=== PATIENT | female | born 1945 | race Caucasian/White ===

== ENCOUNTER 2022-06-23 12:20 | Outpatient (CLI) | payer MEDICARE, MEDICAID, SELFPAY ==
--- NOTE | 2022-06-23 12:15 | USCV_ITS ---
Yasmani Encinas Age: 76 Gender: F : 1945 Exam Date: 06/23/2022 12:59 Ordering Phys: Loretta Gil MD Technologist: Shaila Christopher Exam Location: [facility] [place] Indication: heart failure BP: 140 / 89 HR: 66 Rhythm: Sinus Technical Quality: Good MEASUREMENTS (Male / Female) Normal Values 2D ECHO LV Diastolic Diameter PLAX 5.2 cm 4.2 - 5.9 / 3.9 - 5.3 cm LV Systolic Diameter PLAX 4.4 cm IVS Diastolic Thickness 1.1 cm 0.6 - 1.0 / 0.6 - 0.9 cm IVS Systolic Thickness 1.0 cm LVPW Diastolic Thickness 1.0 cm 0.6 - 1.0 / 0.6 - 0.9 cm LVPW Systolic Thickness 1.5 cm LVOT Diameter 2.0 cm LV Ejection Fraction 2D Teich 33.0 % LV Ejection Fraction MOD 2C 70.1 % LV Ejection Fraction 2C AL 70.8 % LA Diameter 4.3 cm LA Width 3.7 cm LA Height 6.5 cm RA Width 4.2 cm RA Height 5.1 cm Aorta at Sinotubular Diameter 2.8 cm IVC Diameter 1.7 cm M-MODE MV E Point Septal Separation 0.6 cm DOPPLER AV Peak Velocity 143.0 cm/s LVOT Peak Velocity 114.0 cm/s AV Area Cont Eq vti 2.8 cm squared AV Area Cont Eq pk 2.6 cm squared MV Area PHT 2.8 cm squared Mitral E to A Ratio 1.3 MV E' Velocity 61.5 cm/s Mitral E to MV E' Ratio 18.2 Mitral E to LV E' Lateral Ratio 16.9 Mitral E to LV E' Septal Ratio 20.1 TR Peak Velocity 269.4 cm/s TR Peak Gradient 29.0 mmHg Right Atrial Pressure 3.0 mmHg Pulmonary Artery Systolic Pressu 32.0 mmHg PV Peak Velocity 115.0 cm/s RV Acceleration Time 0.1 s RV Ejection Time 0.4 s RV AcT/ET 0.4 FINDINGS Left Ventricle Left ventricle is normal in size. LV systolic function is mildly reduced with EF of 40-45%. Mild global hypokinesis is seen. Grade II dilastolic dysfunction Right Ventricle Normal in size and function. Right Atrium Dilated Left Atrium Dilated Mitral Valve Structurally normal mitral valve. Moderate mitral regurgitation. Aortic Valve Structurally normal aortic valve. No significant stenosis . Trace aortic regurgitation seen Tricuspid Valve Mild tricuspid regurgitation. RVSP is 35-40mmHg. This is consistent with mild pulmonary hypertension. Pulmonic Valve Not well visualized. Pericardium Pleural effusion is noted. Trivial pericardial effusion. Aorta Aortic root and ascending aorta is mildly dilated. IVC Appears to be normal CONCLUSIONS LV systolic function is mildly reduced with EF of 40 to 45%. Mild global hypokinesis is seen. Grade II dilastolic dysfunction Biatrial enlargement is seen. Moderate mitral regurgitation Trace aortic regurgitation Mild tricuspid regurgitation. Mild pulmonary hypertension Trivial pericardial effusion. Pleural effusion is noted Ascending aorta is mildly dilated No comparison studies are available Pedrito Walker MD (Electronically Signed) Final Date: 23 June 2022 16:54 S
== END 2022-06-23 12:21 | disposition home or self-care (01) ==
LOC: RAD 12:22
PROVIDERS: Visit Provider Family Medicine
DX: I08.3 Combined rheumatic disorders of mitral, aortic and tricuspid valves (principal); I27.20 Pulmonary hypertension, unspecified; J90 Pleural effusion, not elsewhere classified
CPT/HCPCS: 93306

== ENCOUNTER 2022-07-18 10:24 | Outpatient (CLI) | payer MEDICARE, MEDICAID, SELFPAY ==
[2022-07-18 11:09] LABS: Anion Gap 11.7 (5-19); Blood Urea Nitrogen 46 mg/dL (8-23); Calcium 9.2 mg/dL (8.5-10.5); Carbon Dioxide 29 mmol/L (22-29); Chloride 105 mmol/L (98-107); Glucose 102 mg/dL (65-115); Osmolality Calculated 300 mOsm/kg (285-295); Sodium 139 mmol/L (136-145)
[2022-07-18 11:44] LABS: Potassium 6.7 mmol/L (3.5-5.1)
== END 2022-07-18 10:25 | disposition home or self-care (01) ==
PROVIDERS: Visit Provider Internal Medicine
DX: I50.9 Heart failure, unspecified (principal)
CPT/HCPCS: 80048

== ENCOUNTER 2022-08-30 23:40 | Inpatient (IN) | payer MEDICARE, MEDICAID, SELFPAY ==
--- NOTE | 2022-08-30 23:52 | XRR_ITS ---
PROCEDURE INFORMATION: Exam: XR Chest Exam date and time: 08/31/2022 1:18 AM Age: 76 years old Clinical indication: Shortness of breath; Additional info: SOB AMS TECHNIQUE: Imaging protocol: Radiologic exam of the chest. Views: 1 view. COMPARISON: No relevant prior studies available. FINDINGS: Lungs: No definite CHF/pulmonary edema. Mild bilateral lower lung opacities could represent atelectasis and/or pneumonia. Please correlate clinically. Pleural spaces: There appears to be a moderate to large right pleural effusion. No visible pneumothorax. Heart/Mediastinum: Suspect mild to moderate cardiomegaly. Bones/joints: Several old rib fractures noted. XR/XR chest 1V portable [id number] IMPRESSION: 1. Moderate to large right pleural effusion. 2. Bilateral lower lung opacities, see above discussion. 3. Other findings discussed above.
--- NOTE | 2022-08-30 23:52 | CTR_ITS ---
PROCEDURE INFORMATION: Exam: CT Head Without Contrast Exam date and time: 08/31/2022 1:27 AM Age: 76 years old Clinical indication: Altered mental status/memory loss; Additional info: AMS TECHNIQUE: Imaging protocol: Computed tomography of the head without contrast. Radiation optimization: All CT scans at this facility use at least one of these dose optimization techniques: automated exposure control; mA and/or kV adjustment per patient size (includes targeted exams where dose is matched to clinical indication); or iterative reconstruction. REPORTING DATA: Count of CT and Cardiac NM exams in prior 12 months: This patient has received 0 known CTs and 0 known cardiac nuclear medicine studies in the 12 months prior to the current study. COMPARISON: No relevant prior studies available. RADIATION DOSE METRICS: Total DLP (mGy-cm): 1036.89 FINDINGS: Brain: No acute intracranial hemorrhage or midline shift. There is mild decreased attenuation in the periventricular white matter, likely from microvascular disease. There is a 40 x 25 x 30 mm area of relative low attenuation involving the medial right occipital lobe. This could represent an old infarct, although I suspect this may represent an area of subacute infarct. Acute infarct,(<24 hrs old), is felt less likely given the degree of low-attenuation, but is not excluded. Please correlate clinically. MRI could be more sensitive/specific for acute infarct detection, and also for distinguishing between old and subacute infarcts, as clinically directed. Eventual comparison with any available prior exams may also be helpful. Cerebral ventricles: Ventricle size is normal for age. Paranasal sinuses: Included paranasal sinuses are essentially clear. Mastoid air cells: No significant acute finding. Bones/joints: No definite acute skull fracture. Soft tissues: No significant acute finding. Vasculature: Vascular calcifications in the internal carotid arteries. CT/CT head wo con* [id number] IMPRESSION: 1. Suspicion for a subacute infarct involving the medial right occipital lobe, please see above discussion. 2. No acute intracranial hemorrhage or midline shift. 3. No definite acute infarct by CT, see above. 4. Other findings discussed above.
[2022-08-31] VITALS (95 sets, daily range): BP systolic 72–109; BP diastolic 36–75; PULSE 65–118; RESP 12–33; TEMP 34.7–36.4; O2SAT 67–100
--- NOTE | 2022-08-31 | USR_ITS ---
PROCEDURE INFORMATION: Exam: US Duplex Lower Extremity Veins, Bilateral Exam date and time: 08/31/2022 9:09 AM Age: 76 years old Clinical indication: Condition or disease; Other: Bilat lower extremity edema; Additional info: R/O dvt TECHNIQUE: Imaging protocol: Real-time duplex ultrasound of the bilateral extremities with 2-D amos scale, color Doppler flow and spectral waveform analysis including responses to compression and other maneuvers (when performed) with image documentation. Complete exam focused on the lower extremity veins. COMPARISON: No relevant prior studies available. FINDINGS: Right deep veins: Unremarkable. The common femoral, femoral, proximal profunda femoral and popliteal veins are patent without thrombus. Normal Doppler waveforms. Normal compressibility and/or augmentation response. Right superficial veins: Saphenofemoral junction is patent without thrombus. Left deep veins: Unremarkable. The common femoral, femoral, proximal profunda femoral and popliteal veins are patent without thrombus. Normal Doppler waveforms. Normal compressibility and/or augmentation response. Left superficial veins: Saphenofemoral junction is patent without thrombus. Soft tissues: There is increased reticulation of the subcutaneous tissues in the lower legs, consistent with edema. US/[place] [id number] IMPRESSION: No evidence of deep vein thrombosis.
--- NOTE | 2022-08-31 00:04 | ECG_ITS ---
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 Measurements Intervals [place] Rate: 78 P: 74 [place]: 150 QRS: 81 QRSD: 137 T: -17 QT: 443 QTc: 507 Interpretive Statements SINUS RHYTHM INTRAVENTRICULAR CONDUCTION DELAY [130+ ms QRS DURATION] POSSIBLE ANTERIOR MYOCARDIAL INFARCTION , OF INDETERMINATE AGE [30 ms Q WAVE IN V3/V4, OR R < 0.2 mV IN V4] No previous ECG available for comparison Electronically Signed On 08-31-2022 11:39:56 IGNITION SPECIALIST by Pedrito Walker M.D. [id number]
[2022-08-31 00:19] LABS: ABG PCO2 47.3 mmHg (35-45); ABG PH Result 7.31 (7.35-7.45); Arterial Blood Gas Hematocrit 24.6 % (37-47); Base Excess ABG -2.3 mmol/L (-2.0-2.0); Blood Gas Sample Site Brachial, left; Blood Gas Sample Type Arterial; Carboxyhemoglobin 1.6 %THgb (0.4-20.1); HCO3 ABG 23.9 mmol/L (22-26); HGB O2 Sat 94.2 % (95-100); Methemoglobin 0.6 % (0.4-1.5); Oxygen Device NC; PO2 ABG 85.2 mmHg (80.0-100.0)
[2022-08-31 01:10] LABS: Lactic Sepsis W/Reflex 2.9 mmol/L (0.5-2.2)
[2022-08-31 01:17] LABS: Basophils % 0.1 %; Hematocrit 28.5 % (37.0-47.0); Hemoglobin 8.3 g/dL (11.5-15.3); Lymphocytes # 0.7 10^3/uL (0.8-4.8); Lymphocytes % 2.9 %; Mean Corpuscular HGB Conc 29.1 g/dL (30.0-36.0); Mean Corpuscular Hemoglobin 21.4 pg (28.0-34.0); Mean Corpuscular Volume 73.6 fl (81-99); Mean Platelet Volume 11.2 fL (7.4-10.4); Monocytes # 1.2 10^3/uL (0.2-0.9); Monocytes % 4.8 %; Neutrophils # 22.11 10^3/uL (1.8-7.7); Neutrophils % 91.5 %; Nucleated Red Blood Cells # 0.2 /100WBC; Platelet Count 283 10^3/cmm (130-400); Red Blood Count 3.87 10^6/uL (4.1-5.3); White Blood Count 24.2 10^3/uL (4.0-10.0)
[2022-08-31 01:18] LABS: Alanine Aminotransferase 419 U/L (0-33); Albumin Level 2.7 g/dL (3.5-5.2); Alkaline Phosphatase 132 U/L (35-105); Anion Gap 25.7 (5-19); Calcium 7.3 mg/dL (8.5-10.5); Carbon Dioxide 21 mmol/L (22-29); Chloride 95 mmol/L (98-107); Globulin 2.4 g/dL (1.3-4.6); Glucose 83 mg/dL (65-115); Osmolality Calculated 312 mOsm/kg (285-295); Sodium 135 mmol/L (136-145); Total Bilirubin 1.6 mg/dL (0.15-1.2); Total Protein 5.1 g/dL (6.6-8.7)
[2022-08-31 01:36] LABS: Troponin(5th) Baseline 136 ng/L (0-10)
[2022-08-31 01:37] LABS: Blood Urea Nitrogen 104 mg/dL (8-23); Potassium 6.7 mmol/L (3.5-5.1)
[2022-08-31 01:44] LABS: Aspartate Amino Transferase 1165 U/L (0-32)
[2022-08-31 01:45] LABS: NT Pro B Type Natriuretic Pept > 70000 pg/mL (0-450)
--- NOTE | 2022-08-31 01:50 | ED_ITS ---
HPI - Altered Mental Status General: Chief Complaint: Altered Mental Status Stated Complaint: AMS Time Seen by Provider: 08/30/22 23:44 Source: patient History of Present Illness: 76-year-old female with a history of dementia. She resides in a half-way. She was sent by the nursing staff for decreased responsiveness, and hypoxia. Their story was that she had an episode of syncope earlier in the day followed by increasing lethargy. Saturations were evidently in the 70s and 80s on EMS arrival on 3 L of oxygen. She was placed on 5 L by EMS, given a breathing treatment, and oxygen status as well as her mental state have improved to some degree. She is able to tell us that it is August, and that Thom is president. She has a history of a wet cough. MD complaint: altered mental status and decreased responsiveness Onset (ago): hour(s) Timing confirmed by: caregiver Severity: moderate Consistency of symptoms: Waxing and Waning Associated symptoms: Reports other Review of Systems General: Reports: ROS unobtainable due to mental status Const: Denies: fever(s) Card: Denies: chest pain Resp: Reports: dyspnea and non-productive cough GI: Denies: abdominal pain or vomiting Physical Exam Const: GENERAL APPEARANCE: cooperative, lethargic, ill appearing and frail appearing ORIENTATION/CONSCIOUSNESS: Yes awake and Yes lethargic HENMT: COMMON NORMALS: normocephalic, atraumatic and Normal external nose present HEAD & SCALP: normocephalic and atraumatic FACE & SINUS: normal facial exam NOSE: Normal external nose present Eye: COMMON NORMALS: Equal, round and reactive pupils present and EOMs intact bilaterally PUPIL: Yes Equal, round and reactive pupils present Chest: CHEST: Yes Symmetrical chest wall rise Resp: EFFORT & INSPECTION: Yes tachypneic AUSCULTATION: diminished lung sounds Cardio: COMMON NORMALS: regular rate and regular rhythm RATE: regular rate RHYTHM: regular rhythm GI: COMMON NORMALS: Normal to inspection, nondistended, normoactive bowel sounds present, Soft to palpation and non-tender PALPATION: Yes Soft to palpation Extremity: NARRATIVE EXTREMITY EXAM: Chronic stasis dermatitis with edema bilaterally Neuro: YOSSI COMA SCALE: document GCS findings Yossi coma scale eye opening: Spontaneous [place] coma scale verbal response: Confused [place] coma scale motor response: Obey commands Yossi coma scale total score: 14 SENSORIUM/ORIENTATION: Yes lethargic Psych: COMMON NORMALS: cooperative Course Consultations: Consultation #1: Shania Time: 02:42 Vital Signs: Vital signs: Vital Signs Pulse Rate 73 08/31/22 02:00 Respiratory Rate 12 08/31/22 02:00 Blood Pressure 108/48 08/31/22 02:30 Pulse Oximetry 94 08/31/22 02:00 Oxygen Delivery Me thod 08/31/22 02:00 Oxygen Flow Rate 4 08/31/22 02:00 MDM - Altered Mental Status Medical Decision Making Patient is nontachycardic, she is not hypoxic. Blood pressure is 100/50. WBC 24, 92% neutrophyls. lactate is 2.9. X ray shows large R pleural effusion and cardiomegaly. Cr is 3.5. baseline appears to be 1.5. BUN elevated. BNP is elevated. Still with likely pneumonia and sepsis, bolus at 30mL/Kg ordered. Saturations are 100% on %L currently. Zosyn and Vanc are ordered/given. She'll need ICU admission. EKG shows IV conduction delay. Not known whether this is new or old, but given K of 6.7 will have to treat hyperkalemia. Insulin/glucose, calcium and sodium bicarb are ordered/given. She is critical and will go to ICU. She is a DNR by PA order. Lab Data 08/31/22 00:28 08/31/22 00:28 Radiology Impressions Chest X-Ray 08/30/22 23:52 IMPRESSION: 1. Moderate to large right pleural effusion. 2. Bilateral lower lung opacities, see above discussion. 3. Other findings discussed above. Head CT 08/30/22 23:52 IMPRESSION: 1. Suspicion for a subacute infarct involving the medial right occipital lobe, please see above discussion. 2. No acute intracranial hemorrhage or midline shift. 3. No definite acute infarct by CT, see above. 4. Other findings discussed above. ADDENDUM: 08/31/22 0217 This report contains findings that may be critical to patient care. I discussed the critical exam findings by phone with JESSICA Davila at 2:14 AM HONING JOB SETTER, 08/31/2022. The findings were acknowledged and understood. Laboratory Results WBC 24.2 10^3/uL (4.0-10.0) H 08/31/22 00:28 RBC 3.87 10^6/uL (4.1-5.3) L 08/31/22 00:28 Hgb 8.3 g/dL (11.5-15.3) L 08/31/22 00: Hct 28.5 % (37.0-47.0) L 08/31/22 00: MCV 73.6 fl (81-99) L 08/31/22 00: MCH 21.4 pg (28.0-34.0) L 08/31/22 00: MCHC 29.1 g/dL (30.0-36.0) L 08/31/22 00: RDW 18.0 % (12.1-15.1) H 08/31/22 00: Plt Count 283 10^3/cmm (130-400) 08/31/22 00: MPV 11.2 fL (7.4-10.4) H 08/31/22 00:28 Neut % (Auto) 91.5 % 08/31/22 00: Lymph % (Auto) 2.9 % 08/31/22 00: Marshall % (Auto) 4.8 % 08/31/22 00:28 Eos % (Auto) 0.0 % 08/31/22 00:28 Baso % (Auto) 0.1 % 08/31/22 00: Neut # (Auto) 22.11 10^3/uL (1.8-7.7) H 08/31/22 00:28 Lymph # (Auto) 0.7 10^3/uL (0.8-4.8) L 08/31/22 00:28 Marshall # (Auto) 1.2 10^3/uL (0.2-0.9) H 08/31/22 00:28 Eos # (Auto) 0.0 10^3/uL (0.0-0.8) 08/31/22 00:28 Baso # (Auto) 0.0 10^3/uL (0.0-0.1) 08/31/22 00:28 Nucleated RBC % (auto) 1.0 % 08/31/22 00: Nucleated RBCs # 0.2 /100WBC 08/31/22 00:28 Specimen Type Arterial 08/31/22 00:06 Sample Site Brachial, left 03/05/23 00:06 ABG pH 7.31 (7.35-7.45) L 08/31/22 00:06 ABG pCO2 47.3 mmHg (35-45) H 08/31/22 00:06 ABG pO2 85.2 mmHg (80.0-100.0) 08/31/22 00:06 ABG HCO3 23.9 mmol/L (22-26) 08/31/22 00:06 ABG Base Excess -2.3 mmol/L (-2.0-2.0) L 08/31/22 00:06 Neo Test N/a 08/31/22 00:06 Hematocrit 24.6 % (37-47) L 08/31/22 00:06 Hgb O2 Saturation 94.2 % (95-100) L 08/31/22 00:06 Carboxyhemoglobin 1.6 %THgb (0.4-20.1) 08/31/22 00:06 Methemoglobin 0.6 % (0.4-1.5) 08/31/22 00:06 Total Hemoglobin 8.0 g/dL (12-16) L 08/31/22 00:06 O2 Delivery Device Nc 08/31/22 00:06 O2 Liters/Min 4.0 % 08/31/22 00:06 FiO2 36.0 % 08/31/22 00:06 Irrigationist Designer ID Navarro 08/31/22 00:06 Sodium 135 mmol/L (136-145) L 08/31/22 00:28 Potassium 6.7 mmol/L (3.5-5.1) H* 08/31/22 00:28 Chloride 95 mmol/L (98-107) L 08/31/22 00:28 Carbon Dioxide 21 mmol/L (22-29) L 08/31/22 00:28 Anion Gap 25.7 (5-19) H 08/31/22 00:28 BUN 104 mg/dL (8-23) H* D 08/31/22 00:28 Creatinine 3.5 mg/dL (0.5-0.9) H 08/31/22 00:28 GFR Calculation Not Reportable 08/31/22 00:28 Glucose 83 mg/dL (65-115) 08/31/22 00:28 POC Glucose 181 mg/dL (70-110) H 08/31/22 02:22 Calculated Osmolality 312 mOsm/kg (285-295) H 08/31/22 00:28 Lactic Acid 2.9 mmol/L (0.5-2.2) H 08/31/22 00:28 Calcium 7.3 mg/dL (8.5-10.5) L 08/31/22 00:28 Total Bilirubin 1.6 mg/dL (0.15-1.2) H 08/31/22 00:28 AST 1165 U/L (0-32) H 08/31/22 00:28 ALT 419 U/L (0-33) H 08/31/22 00:28 Alkaline Phosphatase 132 U/L (35-105) H 08/31/22 00:28 Troponin T Baseline 136 ng/L (0-10) H* 08/31/22 00:28 NT-Pro-B Natriuret Pep > 26870 pg/mL (0-450) H 08/31/22 00:28 Total Protein 5.1 g/dL (6.6-8.7) L 08/31/22 00:28 Albumin 2.7 g/dL (3.5-5.2) L 08/31/22 00:28 Globulin 2.4 g/dL (1.3-4.6) 08/31/22 00:28 Critical Care Time Critical Care Time: Critical Care Time: Yes Total Critical Care Time: 45 Attestation: This case had a high probability of a clinically significant, sudden, or life threatening deterioration of this patient's condition which required my full and direct attention, intervention and personal management. Time is independent of any procedures performed Discharge Plan Discharge Patient Disposition: Admitted As Inpatient Clinical Impression: Sepsis, Stroke, Pneumonia, Pleural effusion, Acute hyperkalemia, DEEPALI (acute kidney injury) Condition: Critical Coding Level of Care Code ED Case Picker for Hillary Green
[2022-08-31] MEDS: piperacillin-tazobactam 4.5 GM in sodium chloride 0.9% (plus) 50 ML IV (01:51)
--- NOTE | 2022-08-31 01:53 | ECG_ITS ---
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 Measurements Intervals [place] Rate: 69 P: 60 [place]: 141 QRS: -39 QRSD: 141 T: 139 QT: 466 QTc: 502 Interpretive Statements SINUS RHYTHM LEFT AXIS DEVIATION [QRS AXIS < -30] LEFT BUNDLE BRANCH BLOCK [120+ ms QRS DURATION, 80+ ms Q/S IN V1/V2, 85+ ms R IN I/aVL/V5/V6] Compared to ECG 08/31/2022 00:04:40 Left-axis deviation now present Left bundle-branch block now present Intraventricular conduction delay no longer present Myocardial infarct finding no longer present Electronically Signed On 08-31-2022 11:39:29 SHANK MAKER by Pedrito Walker M.D. [id number]
[2022-08-31] MEDS: sodium chloride 0.9% 1,000 ML 999 ML IV ×2 (02:08→03:07)
[2022-08-31] MEDS: sodium bicarbonate 8.4% 1 mEq/mL 50mL Syr 50 MEQ IVP (02:11)
[2022-08-31] MEDS: calcium gluconate 0.9% NaCL 1 GM/50 ML PREMIX IV ×2 (02:14→18:15)
[2022-08-31] MEDS: insulin regular-human 100 units/1 mL 10 UNIT IVP (02:22)
[2022-08-31] MEDS: vancomycin 1,000 MG in sodium chloride 0.9% 250 ML 250 MG IV (02:25)
[2022-08-31 02:33] LABS: Reflex Lactate Order REFLEX LACTIC ORDERD
[2022-08-31 02:37] LABS: Glucose Point of Care 181 mg/dL (70-110)
[2022-08-31 03:03] LABS: Glucose Point of Care 77 mg/dL (70-110)
[2022-08-31 03:24] LABS: Troponin 5 2HR Delta 4.6 ABS# (0-10)
[2022-08-31 03:25] LABS: Troponin 5 2HR 140.6 ng/L (0-10)
--- NOTE | 2022-08-31 04:03 | PC.NURSE ---
Addendum entered by Lora Phillips RN 08/31/22 04:08: Axillary temp 94.4, Shilpa Huggfroilan warming blanket applied. Original Note: Pt arrive to ICU 7 from ER via stretcher on continuos monitoring @0340. Continuos monitoring continued. Pt is A&Ox2. NC 3.5L. Skin issues noted, see wound assessment.
--- NOTE | 2022-08-31 05:19 | USR_ITS ---
PROCEDURE INFORMATION: Exam: US Duplex Bilateral Extracranial Arteries, Carotid Arteries Exam date and time: 08/31/2022 9:35 AM Age: 76 years old Clinical indication: Malaise or fatigue; Additional info: Stroke TECHNIQUE: Imaging protocol: Real-time Duplex ultrasound scan of the bilateral carotid and vertebral arteries combining amos scale, color Doppler and spectral waveform analysis. Bilateral exam. Exam focused on the carotid arteries. COMPARISON: CT head wo con* [id number] 08/31/2022 1:27 AM FINDINGS: Scattered areas of atherosclerotic plaque seen bilaterally. Right common carotid artery: Unremarkable. No occlusion or stenosis. Waveforms are normal. Right internal carotid artery: Unremarkable. No occlusion or stenosis. Waveforms are normal. Right ICA/CCA ratio: Within normal limits. Right external carotid artery: No stenosis in the origin. Right vertebral artery: Unremarkable. Antegrade flow. Left common carotid artery: Unremarkable. No occlusion or stenosis. Waveforms are normal. Left internal carotid artery: Unremarkable. No occlusion or stenosis. Waveforms are normal. Left ICA/CCA ratio: Within normal limits. Left external carotid artery: No stenosis in the origin. Left vertebral artery: Unremarkable. Antegrade flow. US/CV carotid duplex BI* [id number] IMPRESSION: No carotid arterial stenosis. REFERENCES: SRU CRITERIA. The degree of internal carotid artery stenosis is based on criteria defined by the Society of Radiologists in Ultrasound (SRU). Normal is no stenosis. Mild is less than 50% stenosis. Moderate is 50-69% stenosis. Severe is greater than 69% stenosis to near occlusion. Near occlusion is a markedly narrowed lumen. Total occlusion is no detectable patent lumen.
[2022-08-31] MEDS: albumin 25 G/100 ML BAG 60 G IV ×3 (05:27→20:47)
[2022-08-31] MEDS: sodium chloride 0.9% 1,000 ML 50 ML IV (05:27)
[2022-08-31] MEDS: enoxaparin 100 mg/mL Syringe 60 MG SUBCUT (05:36)
[2022-08-31] MEDS: insulin regular-human 10 UNIT in SYRINGE 1 EACH IVP ×2 (05:39→18:04)
[2022-08-31 05:44] LABS: Potassium, Radom Urine 55 mmol/L; Urine Random Chloride 41 mmol/L; Urine Random Sodium 52 mmol/L
[2022-08-31] MEDS: hydrocortisone 100 mg/2 mL SDV IVP (05:54)
[2022-08-31 05:59] LABS: Glucose Urine UA 1+ (Normal); Protein Urine 3+ (Negative); Specific Gravity, Urine 1.025 (1.005-1.030); Urine Appearance Hazy (CLEAR); Urine Color Dark Yellow (Yellow); pH Urine 5 (5-7)
[2022-08-31 06:00] LABS: Add Urine Microscopic? YES; Bilirubin Urine 1+ (Negative); Blood Urine 3+ (Negative); Ketones Urine 1+ (Negative); Leukocyte Esterase Urine Trace (Negative); Nitrate Urine Positive (Negative); Urobilinogen Urine 1 mg/dL (Negative)
--- NOTE | 2022-08-31 06:00 | PC.NURSE ---
Bedside [place] w/ bolus showed 12.4% (fluid responsive), Dr. Spicer aware.
[2022-08-31 06:01] LABS: RBC Urine 25-40 /hpf (0-2)
[2022-08-31 06:02] LABS: Add Urine Culture? Yes; Amorphous Sediment Urine 2+ /hpf; Bacteria Urine 3+ /hpf; Hyaline Casts Urine 0-4 /lpf; Mucus Urine 2+ /hpf; WBC Urine 15-25 /hpf (0-5)
--- NOTE | 2022-08-31 06:07 | PM.HP ---
Providers/Chief Complaint Admitting Physician: Home Spicer MD Primary Care Provider: Loretta Gil MD Chief Complaint: AMS History of Present Illness History taken through chart review and conversation with shelter. Yasmani Encinas is a 76 year old female with past medical history of congestive heart failure with known EF of 45%, global LV hypokinesia, shelter resident on oral Lasix and spironolactone was brought into the ER overnight because of episode of syncope at around 11 AM followed by resolution of symptoms in 15 minutes. As per the shelter patient has been having episodes of confusion and difficulty in breathing during the day requiring oxygen hence was sent to the hospital. Blood work in the ER showed a white count 24.2, hemoglobin of 8.3, ABG showing a pH of 7.3, PCO2 47, PO2 of 85, sodium 135, potassium of 6.7, bicarb of 21 with anion gap of 26, BUN of 104, creatinine of 3.5, lactate of 2.9, bilirubin of 1.6, AST/ALT of 1165/419, baseline troponin of 136 with delta of 4 in [address] head concerning for acute to subacute stroke in detail as below. In ER patient was given 1 L of fluid bolus, 2 doses of D50 and 10 units of insulin along with 50 mg of sodium bicarb. On examination in ICU, patient appears chronically sick, sleeping but easy to arouse, weak, alert and oriented to self with blood pressure of 98/60 with a MAP of 68, heart rate 74 with hypothermia and body temperature of 94 Fahrenheit under Shilpa hugger. Patient also found to have chronic decubitus ulcer. Review of Systems General: Reports: ROS unobtainable due to mental status Medications/Allergies Home Medications Medication Instructions Recorded Confirmed Last Taken Type albuterol sulfate 2.5 mg/3 mL 2.5 mg inhalation Q6H PRN Wheezing 08/31/22 08/31/22 Unknown History (0.083 %) solution for nebulization aspirin 81 mg tablet,delayed 81 mg PO DAILY 08/31/22 08/31/22 Unknown History release atorvastatin 20 mg tablet 20 mg PO DAILY 08/31/22 08/31/22 Unknown History donepezil 10 mg tablet 10 mg PO DAILY 08/31/22 08/31/22 Unknown History furosemide 40 mg tablet 40 mg PO BID 08/31/22 08/31/22 Unknown History spironolactone 25 mg tablet 25 mg PO DAILY 08/31/22 08/31/22 Unknown History triamcinolone acetonide 0.1 % 1 applic topical BID 08/31/22 08/31/22 Unknown History topical cream Allergies Allergy/AdvReac Type Severity Reaction Status Date / Time No Known Allergies Allergy Verified 08/31/22 01:13 PFSH Acute PFSH: Medical History (Updated 08/31/22 @ 06:15 by Home Spicer MD) Acute hyperkalemia Congestive heart failure Echocardiogram from May 2022: EF 40 to 45%, global LV hypokinesia, grade 2 diastolic dysfunction, RVSP 35 to 40 mmHg, moderate MR COVID-19 Surgical History (Updated 08/31/22 @ 06:15 by Home Spicer MD) Surgical history unknown Family History (Updated 08/31/22 @ 06:15 by Home Spicer MD) Other Hypertension Denies family history of Diabetes Family history of premature coronary artery disease Social History (Updated 08/31/22 @ 06:15 by Home Spicer MD) Caregiver/support person: Yes Household members: other Housing: Long-Term Vitals/I&O/Wt Last Vital Signs Temp 97.6 F 08/31/22 03:00 Pulse 74 08/31/22 04:00 Resp 16 08/31/22 03:00 BP 109/59 08/31/22 03:27 Pulse Ox 94 08/31/22 03:27 O2 Del Method 08/31/22 04:01 O2 Flow Rate 4 08/31/22 03:00 08/30/22 08/30/22 08/31/22 14:59 22:59 06:59 Intake Total 1557.45 / 1557.45 Balance 1557.45 / 1557.45 Weight last 48 hrs Weight 63.503 kg Physical Exam Narrative: General: No acute distress, AO x1-2, chronically sick appearing, slow to respond, nasal cannula oxygen supplementation, dehydrated HEENT: PERRLA, pupils bilaterally equal and reactive Chest: Bilateral bronchial breath sounds all over the lung larios, decreased air entry right lower zone, diffuse rhonchi CVS: S1-S2 regular, pansystolic murmur at apex radiating to anterior axillary line, no tachycardia, no gallops, no rubs Abdomen: Soft, nontender, no organomegaly, bowel sounds present, morbidly obese Neuro: No focal deficits, no facial deformity, Extremity: Decubitus ulcer presenting back, covered in Optifoam Urinary Catheter Management: Schwab: Cath Placed During This Visit: yes Urinary Catheter Date of Insertion: 08/31/22 Urinary Catheter Time of Insertion: 04:52 Data 08/31/22 00:28 08/31/22 00:28 Micro: Microbiology 08/31/22 04:50 Legionella Urinary Antigen - Final Unknown Source 08/31/22 00:36 Blood Culture - Preliminary Blood SPECIMEN COLLECTED 08/31/22 00:28 Blood Culture - Preliminary Blood SPECIMEN COLLECTED A&P Assessment and plan (1) Sepsis: (2) UTI (urinary tract infection): (3) Acute respiratory failure with hypoxia and hypercapnia: (4) Pneumonia: (5) DEEPALI (acute kidney injury): (6) Stroke: (7) Acute hyperkalemia: (8) High anion gap metabolic acidosis: (9) Transaminitis: (10) Hyperbilirubinemia: (11) Uremia: (12) Congestive heart failure: (13) Pleural effusion: Plan 76-year-old lady with no known past medical history other than congestive heart failure and a recent COVID-19 was brought in from the shelter with concerns for episode of syncope in a.m. along with episodes of hypoxia and confusion during the day found to be in severe sepsis, acute kidney injury with metabolic acidosis and hyperkalemia along with hypothermia and subacute stroke on CT scan. Severe sepsis: Present on admission. Ruled in with elevated lactate, leukocytosis, hypothermia with target organ dysfunction of acute kidney injury, liver dysfunction, metabolic encephalopathy. Maintain mean artery pressure over 65. Bear hugger to maintain body temperature around 97 Fahrenheit Keep oxygen saturation over 92. Cheetah exam done at bedside shows patient to be fluid responsive. Continue normal saline at 50 cc/h while monitoring for fluid overload. IV albumin every 8 hourly for 1 day. 1 dose of hydrocortisone 100 mg stat. Check random cortisol, TSH, procalcitonin, blood culture, urinalysis, urine culture, MRSA swab, respiratory viral panel, CPK. CT chest abdomen pelvis without contrast for further evaluation of a possible pneumonia, obstructive nephropathy, gallbladder disorder. For now empirically start with vancomycin and Zosyn. Will de-escalate antibiotics as per culture results. Acute kidney injury/uremia/hyperkalemia/high anion gap metabolic acidosis: Most likely in setting of poor oral intake, sepsis along with home dose of Lasix and spironolactone. Patient appears clinically dehydrated. Gentle IV hydration as above. D50 and 10 units of insulin. Monitor BMP every [address] abdomen pelvis as above to rule out obstructive nephropathy. Medical reconciliation done for nephrotoxic drugs. History of congestive heart failure with moderate MR: Patient appears clinically dehydrated. Monitor for fluid overload. Aspiration precaution Head of the bed elevated to 45 degrees. Elevated troponins: Cannot rule out non-ST elevation VT. Cycle troponins. Oral aspirin 81 mg daily. Hold off on statin now given transaminitis. Lovenox 1 mg/kg body weight daily as per creatinine clearance. Subacute stroke: As seen on CT scan. Carotid Dopplers. Patient has already had recent cardiac angiogram. Aspirin as above. Once patient stabilizes can plan for MRI for further evaluation. Transaminitis/hyperbilirubinemia: CT abdomen pelvis as above. Monitor daily for now. Decubitus ulcer: Antibiotics as above. Local care with Hydrofera Blue. Analgesia: Tylenol 650 every 8 hourly as needed, morphine 1 mg every 6 hourly as needed Glycemic control: Not needed. Check A1c. Nutrition: Clear liquid diet, protein shakes with each meal CODE STATUS: Discussed in detail with patient's DPOA/daughter Ms. Ella Rasmussen. Patient is DNR/DNI. DPOA is okay with patient getting medical treatment but would not want any aggressive treatment like pressors for dialysis. PUD prophylaxis: Protonix DVT prophylaxis: Full dose Lovenox will suffice as DVT prophylaxis. Discharge planning: Back to shelter once medically stable. Admit to ICU. This documentation was created by [employer] sumo wrestler software. Every effort was made to ensure accuracy of sumo wrestler. Any obvious errors or omissions should be clarified with the author of the document. Attestations Medical Necessity Statement*: Admission for more than 2 midnights for management of severe sepsis, acute kidney injury with hyperkalemia, high anion gap metabolic acidosis, liver dysfunction, subacute stroke Coding Level of Care Code Critical Care >/= 30 minutes Critical care time (in minutes): 80 The high probability of a clinically significant, sudden or life threatening deterioration, as referenced in this documentation, required my full and direct attention, intervention and personal management. The critical care time shown is in addition to time spent performing any reported separately billable procedures and includes the following: [x] Data and vital sign review and interpretation [x] Patient assessment, examination and intervention [x] Medication orders and management [x] Patient/Family updates as able [x] Care Coordination and Documentation. Diagnoses Sepsis A41.9 UTI (urinary tract infection) N39.0 Acute respiratory failure with hypoxia and hypercapnia J96.01; J96.02 Pneumonia J18.9 DEEPALI (acute kidney injury) N17.9 Stroke I63.9 Acute hyperkalemia E87.5 High anion gap metabolic acidosis E87.29 Transaminitis R74.01 Hyperbilirubinemia E80.6 Uremia N19 Congestive heart failure I50.9 Pleural effusion J90
[2022-08-31 06:31] LABS: Procalcitonin 0.43 ng/mL (0-0.5); Thyroid Stimulating Hormone 4.22 uIU/mL (0.27-4.20)
[2022-08-31 06:42] LABS: Alanine Aminotransferase 367 U/L (0-33); Albumin Level 2.3 g/dL (3.5-5.2); Alkaline Phosphatase 94 U/L (35-105); Calcium 6.6 mg/dL (8.5-10.5); Carbon Dioxide 22 mmol/L (22-29); Chloride 95 mmol/L (98-107); Glucose 205 mg/dL (65-115); Osmolality Calculated 314 mOsm/kg (285-295); Sodium 134 mmol/L (136-145); Total Bilirubin 1.2 mg/dL (0.15-1.2); Total Protein 4.3 g/dL (6.6-8.7)
[2022-08-31 06:52] LABS: Lactic Acid level (Lactate) 2.9 mmol/L (0.5-2.2)
[2022-08-31] MEDS: pantoprazole 40 mg SDV IVP ×2 (07:10→18:15)
[2022-08-31 07:11] LABS: Glucose Point of Care 178 mg/dL (70-110)
[2022-08-31 07:16] LABS: Aspartate Amino Transferase 891 U/L (0-32)
[2022-08-31 07:17] LABS: Anion Gap 23.3 (5-19)
[2022-08-31 07:18] LABS: Blood Urea Nitrogen 96 mg/dL (8-23); Creatine Phosphokinase 663 U/L (26-192); Potassium 6.3 mmol/L (3.5-5.1)
[2022-08-31 07:19] LABS: Troponin 5 6HR Delta -0.4 ng/L (0-12)
[2022-08-31 07:20] LABS: Troponin 5 6HR 135.6 ng/L (0-10)
[2022-08-31] MEDS: budesonide 0.5 mg/2 mL Neb INHALATION ×2 (07:35→19:14)
[2022-08-31] MEDS: ipratropium-albuterol 3 mL Neb INHALATION ×3 (07:35→19:14)
[2022-08-31 07:36] LABS: D Dimer > 20.00 ug/mIFEU (0-0.59)
[2022-08-31 07:56] LABS: Adenovirus Not Detected (NOT DETECT); Chlamydia Pneumoniae Not Detected (NOT DETECT); Coronavirus 229E,HKU1,NL63,OC4 Not Detected (NOT DETECT); Human Metapneumovirus Not Detected (NOT DETECT); Human Rhinovirus/Enterovirus Not Detected (NOT DETECT); Influenza A Not Detected (NOT DETECT); Influenza A H1 Not Detected (NOT DETECT); Influenza A H1-2009 Not Detected (NOT DETECT); Influenza A H3 Not Detected (NOT DETECT); Influenza B Not Detected (NOT DETECT); Mycoplasma Pneumoniae Not Detected (NOT DETECT); Parainfluenza Virus Type 1 Not Detected (NOT DETECT); Parainfluenza Virus Type 2 Not Detected (NOT DETECT); Parainfluenza Virus Type 3 Not Detected (NOT DETECT); Parainfluenza Virus Type 4 Not Detected (NOT DETECT); Respiratory Syncytial Virus A Not Detected (NOT DETECT); Respiratory Syncytial Virus B Not Detected (NOT DETECT); SARS-COV-2 Detected (NOT DETECT)
[2022-08-31 08:46] LABS: Iron 15 ug/dL (37-145); Percent Saturation 5.5 % (20-50); Total Iron Binding Capacity 268 mcg/dl; Unsaturated Iron Binding 253 ug/dL (112-347)
[2022-08-31 09:17] LABS: Vitamin B12 > 2000 pg/mL (232-1245)
[2022-08-31 09:56] LABS: Free T4 Free Thyroxine 0.23 ng/dL (0.82-1.77); T3 Free 0.8 PG/ML (2.0-4.4)
[2022-08-31 09:57] LABS: Folate Level 11.7 ng/mL (4.8-37.3)
--- NOTE | 2022-08-31 10:23 | USCV_ITS ---
Yasmani Encinas Age: 76 Gender: F : 1945 Exam Date: 08/31/2022 12:54 Ordering Phys: Lisa Aldana MD Technologist: [place] Exam Location: [facility] [place] Indication: v tach BP: / HR: 81 Rhythm: Other Technical Quality: MEASUREMENTS (Male / Female) Normal Values 2D ECHO LV Diastolic Diameter PLAX 5.7 cm 4.2 - 5.9 / 3.9 - 5.3 cm LV Systolic Diameter PLAX 5.0 cm IVS Diastolic Thickness 0.7 cm 0.6 - 1.0 / 0.6 - 0.9 cm IVS Systolic Thickness 0.8 cm LVPW Diastolic Thickness 0.7 cm 0.6 - 1.0 / 0.6 - 0.9 cm LVPW Systolic Thickness 1.2 cm LVOT Diameter 2.0 cm LV Ejection Fraction 2D Teich 25.3 % LV Ejection Fraction MOD 2C 34.2 % LV Ejection Fraction 2C AL 32.8 % LA Diameter 4.4 cm IVC Diameter 2.6 cm M-MODE Aortic Annulus Diameter 2.3 cm LA Ao Ratio MM 1.7 MV E Point Septal Separation 1.2 cm DOPPLER AV Peak Velocity 162.0 cm/s LVOT Peak Velocity 91.0 cm/s AV Area Cont Eq vti 1.5 cm squared AV Area Cont Eq pk 1.8 cm squared MV Area PHT 5.0 cm squared Mitral E to A Ratio 1.6 MV E' Velocity 50.5 cm/s Mitral E to MV E' Ratio 8.1 Mitral E to LV E' Lateral Ratio 8.8 Mitral E to LV E' Septal Ratio 7.5 TR Peak Velocity 218.0 cm/s TR Peak Gradient 19.0 mmHg TV Peak E Velocity 77.0 cm/s Right Atrial Pressure 6.0 mmHg Pulmonary Artery Systolic Pressu 25.0 mmHg PV Peak Velocity 84.0 cm/s FINDINGS Left Ventricle Left ventricle is mildly dilated. LV systolic function is severely reduced with EF of 30-35%. Severe global hypokinesis is seen. Right Ventricle Mild to modeartely hypokinetic. Right Atrium Normal in size Left Atrium Normal in size Mitral Valve Structurally normal mitral valve. Mild to moderate mitral regurgitation. Aortic Valve Aortic valve is thickened. No significant stenosis. Tricuspid Valve Mild tricuspid regurgitation. Pulmonary artery systolic pressure is normal. Pulmonic Valve Not well-visualized Pericardium Small pericardial effusion. Pleural effusion is seen. Aorta Normal in size IVC Dilated. CONCLUSIONS Left ventricle is mildly dilated. LV systolic function is severely reduced with EF of 30 to 35%. Severe global hypokinesis Mild to moderately hypokinetic right ventricle Mild to moderate mitral regurgitation Mild tricuspid regurgitation Small pericardial effusion. Pleural effusion is noted IVC is dilated Compared to prior echocardiogram from 06/23/2022, LV systolic function has decreased further. Pedrito Walker MD (Electronically Signed) Final Date: 31 August 2022 17:32 S
[2022-08-31 10:29] LABS: D Dimer > 20.00 ug/mIFEU (0-0.59); INR 3.23 (0.8-1.2); Partial Thromboplastin Time 43.8 SECONDS (23.9-36.7)
--- NOTE | 2022-08-31 12:16 | XRR_ITS ---
PROCEDURE INFORMATION: Exam: XR Chest Exam date and time: 09/01/2022 12:28 AM Age: 76 years old Clinical indication: Other: Hypoxia TECHNIQUE: Imaging protocol: Radiologic exam of the chest. Views: 1 view. COMPARISON: CR (CHEST, ) 08/31/2022 1:18 AM FINDINGS: Lungs: There is redistribution and indistinctness of the pulmonary vasculature, in association with haziness of the lungs and small bilateral pleural effusions, which in the setting of cardiomegaly is consistent with pulmonary edema. Pneumonia should be excluded clinically. No pneumothorax. Pleural spaces: See Lungs finding. Heart/Mediastinum: Stable cardiomediastinal silhouette. Bones/joints: Old healed fracture deformities noted in the left ribcage. XR/XR chest 1V portable [id number] IMPRESSION: Imaging findings of pulmonary edema with small bilateral pleural effusions. Pneumonia should be excluded clinically.
--- NOTE | 2022-08-31 14:49 | PM.PN ---
Subjective Subjective: Seen today. Had a long discussion with patient's daughter and granddaughter at bedside. They state that patient was diagnosed with heart failure and was supposed to be having an angiogram this upcoming Thursday however she ended up here in the hospital. They state that for the last few weeks she was in isolation due to COVID and 4 days ago when she came out of isolation granddaughter went to see her and she looked really good that day. However she was very soft-spoken and slow and said that she was tired and just wanted to rest. Granddaughter and daughter are okay with vasopressors if needed however do not want any heroic measures such as CPR or placing on the ventilator. They also state that a few days ago they noted her to be having a right facial droop and some drooling. They were not aware that there was a subacute stroke on CT scan. Coagulation profile reviewed. Vitals/I&O/Wt Last Vital Signs Temp 94.4 F L 08/31/22 05:30 Pulse 81 08/31/22 14:13 Resp 22 H 08/31/22 14:10 BP 99/49 08/31/22 06:45 Pulse Ox 100 08/31/22 14:13 O2 Del Method 08/31/22 14:10 O2 Flow Rate 2 08/31/22 07:38 FiO2 70 08/31/22 14:13 08/30/22 08/31/22 08/31/22 22:59 06:59 14:59 Intake Total 1557.45 / 1557.45 100 / 100 Output Total 10 / 10 Balance 1547.45 / 1547.45 100 / 100 Weight last 48 hrs Weight 63.503 kg Physical Exam Narrative: General: No acute distress, AO x1, chronically sick appearing, slow to respond, nasal cannula oxygen supplementation, sounds congested. Continuously coughs. HEENT: EOMI Chest: Bilateral bronchial breath sounds all over the lung larios, decreased air entry right lower zone, diffuse rhonchi, very congested. CVS: S1-S2 regular, pansystolic murmur at apex radiating to anterior axillary line, Abdomen: Soft, nontender, bowel sounds present, morbidly obese Neuro: No focal deficits, no facial deformity, Extremity: Decubitus ulcer presenting back, covered in Optifoam Urinary Catheter Management: Schwab: Cath Placed During This Visit: yes Reason for Continuing Indwelling Catheter: Accurate Measurement of Urinary Output in Critically Ill Patients Urinary Catheter Date of Insertion: 08/31/22 Urinary Catheter Time of Insertion: 04:52 Data 08/31/22 00:28 08/31/22 05:50 Micro: Microbiology 08/31/22 05:20 MRSA Culture - Final Nose 08/31/22 04:50 Bacterial Antigens - Final Urine Kidney 08/31/22 04:50 Legionella Urinary Antigen - Final Unknown Source 08/31/22 00:36 Blood Culture - Preliminary Blood SPECIMEN COLLECTED 08/31/22 00:28 Blood Culture - Preliminary Blood SPECIMEN COLLECTED A&P Assessment and plan (1) Sepsis: (2) UTI (urinary tract infection): (3) Acute respiratory failure with hypoxia and hypercapnia: (4) Pneumonia: (5) DEEPALI (acute kidney injury): (6) Stroke: (7) Acute hyperkalemia: (8) High anion gap metabolic acidosis: (9) Transaminitis: (10) Hyperbilirubinemia: (11) Uremia: (12) Congestive heart failure: (13) Pleural effusion: Plan 76-year-old lady with no known past medical history other than congestive heart failure and a recent COVID-19 was brought in from the [place] [facility] with concerns for episode of syncope in a.m. along with episodes of hypoxia and confusion during the day found to be in severe sepsis, acute kidney injury with metabolic acidosis and hyperkalemia along with hypothermia and subacute stroke on CT scan. #Septic shock secondary to most likely UTI, possibly component of cardiogenic shock #Acute kidney injury/acute renal failure #High anion gap metabolic acidosis #DIC #Acute on chronic congestive heart failure with reduced ejection fraction #Elevated troponins most likely secondary to demand ischemia, cannot rule out type I GA #Subacute left occipital lobe stroke #Elevated liver enzymes #Decubitus ulcer #Acute hypoxia requiring BiPAP #Moderate to large pleural effusion on right side ? Sepsis present on admission. Keep MAP above 65. Start Levophed. Family okay with vasopressors for short-term. ? Continue warming blanket to maintain body temperature around 97. ? Continue albumin every 8 hours ? Recheck echo limited to evaluate EF. There might be component of cardiogenic shock along with septic shock. BNP 70,000. Continue patient on BiPAP. -Check random cortisol, TSH, procalcitonin, blood culture, urinalysis, urine culture, MRSA swab, respiratory viral panel, CPK. Studies pending at this time. - CT chest abdomen pelvis without contrast pending at this time. ?Continue vancomycin and Zosyn -hold Lasix and spironolactone at this time. -Patient hyperkalemic on admission. Treated with D50 and 10 units of insulin. Potassium this morning 5.8. We will recheck labs around 3 PM. -Continue aspirin. Hold off on statin due to transaminitis. Patient given therapeutic Lovenox renally dosed for NSTEMI however DIC profile is positive. There is no strong evidence to support effectiveness of routine anticoagulation therapy in sepsis induced DIC. Hemoglobin 8.3. I will stop further Lovenox at this time. - Once patient stabilizes can plan for MRI for further evaluation. -We will hold off on cardiology evaluation for the patient since patient may not be candidate for any Procedures at This Time. Discussed This with the Family and They Are on Board with the Plan. - Decubitus ulcer: Antibiotics as above. - Local care with Hydrofera Blue. -Discussed patient's current situation with the family and decision has been made to continue to watch patient for another 24-48 hours pending clinical course. If there is no signs of improvement they might consider the possibility of comfort measures. Patient's baseline mental status was also discussed. This that she was starting to forget names and there is also a history of dementia documented in paperwork. Analgesia: Tylenol 650 every 8 hourly as needed, morphine 1 mg every 6 hourly as needed Glycemic control: Not needed. Check A1c. Nutrition: Clear liquid diet, protein shakes with each meal CODE STATUS: DNR/DNI. Okay with vasopressors. PUD prophylaxis: Protonix DVT prophylaxis: SCDs at this time. Prognosis is severely guarded. This documentation was created by [employer] banquet attendant software. Every effort was made to ensure accuracy of banquet attendant. Any obvious errors or omissions should be clarified with the author of the document. Attestations Medical Necessity Statement*: Continue ICU level care Coding Level of Care Code Critical Care >/= 30 minutes Critical care time (in minutes): 45 The high probability of a clinically significant, sudden or life threatening deterioration, as referenced in this documentation, required my full and direct attention, intervention and personal management. The critical care time shown is in addition to time spent performing any reported separately billable procedures and includes the following: [x] Data and vital sign review and interpretation [x] Patient assessment, examination and intervention [x] Medication orders and management [x] Patient/Family updates as able [x] Care Coordination and Documentation. Diagnoses Sepsis A41.9 UTI (urinary tract infection) N39.0 Acute respiratory failure with hypoxia and hypercapnia J96.01; J96.02 Pneumonia J18.9 DEEPALI (acute kidney injury) N17.9 Stroke I63.9 Acute hyperkalemia E87.5 High anion gap metabolic acidosis E87.29 Transaminitis R74.01 Hyperbilirubinemia E80.6 Uremia N19 Congestive heart failure I50.9 Pleural effusion J90
[2022-08-31] MEDS: piperacillin-tazobactam 3.375 GM in sodium chloride 0.9% (plus) 50 ML IV (15:08)
[2022-08-31 16:30] LABS: Base Excess VBG -2.6 mmol/L (-3.0-3.0); Blood Gas Allen Test Pos; Blood Gas Operator Identificat MONRO; Blood Gas Sample Site Not specified; Blood Gas Sample Type Venous; HCO3 VBG 23.4 mmol/L (24-28); PCO2 VBG 45.5 mmHg (41-51); PO2 VBG 38.4 mmHg (25-40); Venous Blood Gas Hematocrit 23.2 % (37-47); pH VBG 7.32 (7.32-7.42)
[2022-08-31 16:31] LABS: Oxygen Device BIPAP
[2022-08-31 16:49] LABS: Basophils % 0.1 %; Hematocrit 25.1 % (37.0-47.0); Hemoglobin 7.2 g/dL (11.5-15.3); Lymphocytes # 0.5 10^3/uL (0.8-4.8); Lymphocytes % 2.1 %; Mean Corpuscular HGB Conc 28.7 g/dL (30.0-36.0); Mean Corpuscular Hemoglobin 21.1 pg (28.0-34.0); Mean Corpuscular Volume 73.4 fl (81-99); Mean Platelet Volume 11.2 fL (7.4-10.4); Monocytes # 0.9 10^3/uL (0.2-0.9); Monocytes % 3.7 %; Neutrophils # 22.36 10^3/uL (1.8-7.7); Neutrophils % 93.6 %; Nucleated Red Blood Cells # 0.2 /100WBC; Nucleated Red Blood Cells % 0.8 %; Platelet Count 207 10^3/cmm (130-400); Red Blood Count 3.42 10^6/uL (4.1-5.3); White Blood Count 23.9 10^3/uL (4.0-10.0)
[2022-08-31 17:15] LABS: Alanine Aminotransferase 350 U/L (0-33); Albumin Level 3.1 g/dL (3.5-5.2); Alkaline Phosphatase 105 U/L (35-105); Anion Gap 23.3 (5-19); Calcium 6.7 mg/dL (8.5-10.5); Carbon Dioxide 22 mmol/L (22-29); Chloride 97 mmol/L (98-107); Globulin 2.1 g/dL (1.3-4.6); Glucose 129 mg/dL (65-115); Magnesium 1.8 mg/dL (1.7-2.3); Osmolality Calculated 318 mOsm/kg (285-295); Potassium 6.3 mmol/L (3.5-5.1); Sodium 136 mmol/L (136-145); Total Bilirubin 1.5 mg/dL (0.15-1.2)
[2022-08-31 17:36] LABS: Aspartate Amino Transferase 837 U/L (0-32); Total Protein 5.2 g/dL (6.6-8.7)
[2022-08-31 17:38] LABS: Blood Urea Nitrogen 108 mg/dL (8-23)
[2022-08-31] MEDS: dextrose 50% syringe 50 mL IVP (18:22)
--- NOTE | 2022-08-31 19:18 | PC.NURSE ---
Addendum entered by Lora Phillips RN 08/31/22 19:44: New order for 10units Novlin and D50, see MAR for administration Original Note: Kayexalate not given. Pt is unable to safely swallow. BIPAP in place. Dr. Spicer aware.
[2022-08-31] MEDS: insulin regular-human 10 UNIT in SYRINGE 1 EACH 100 UNIT IVP (20:32)
[2022-08-31 20:45] LABS: Glucose Point of Care 224 mg/dL (70-110)
[2022-08-31] MEDS: FUROsemide 10 mg/mL SDV 4mL 40 MG IVP (20:46)
[2022-09-01] VITALS (68 sets, daily range): BP systolic 69–117; BP diastolic 37–77; PULSE 42–162; RESP 16–30; TEMP 35.6–36.6; O2SAT 60–100
[2022-09-01] MEDS: piperacillin-tazobactam 3.375 GM in sodium chloride 0.9% (plus) 50 ML IV (02:23)
[2022-09-01] MEDS: ipratropium-albuterol 3 mL Neb INHALATION ×2 (02:45→08:24)
[2022-09-01 05:11] LABS: Basophils % 0.1 %; Hematocrit 26.2 % (37.0-47.0); Hemoglobin 7.6 g/dL (11.5-15.3); Lymphocytes # 0.4 10^3/uL (0.8-4.8); Lymphocytes % 1.5 %; Mean Corpuscular Hemoglobin 21.1 pg (28.0-34.0); Mean Corpuscular Volume 72.6 fl (81-99); Mean Platelet Volume 10.8 fL (7.4-10.4); Monocytes % 4.1 %; Neutrophils # 22.96 10^3/uL (1.8-7.7); Neutrophils % 93.6 %; Nucleated Red Blood Cells # 0.2 /100WBC; Nucleated Red Blood Cells % 0.9 %; Platelet Count 188 10^3/cmm (130-400); Red Blood Count 3.61 10^6/uL (4.1-5.3); White Blood Count 24.5 10^3/uL (4.0-10.0)
[2022-09-01 05:30] LABS: Alanine Aminotransferase 283 U/L (0-33); Albumin Level 3.3 g/dL (3.5-5.2); Alkaline Phosphatase 96 U/L (35-105); Anion Gap 25.4 (5-19); Aspartate Amino Transferase 608 U/L (0-32); Calcium 6.6 mg/dL (8.5-10.5); Carbon Dioxide 19 mmol/L (22-29); Chloride 97 mmol/L (98-107); Chol HDL Ratio 2.37 mg/dL (0.0-4.40); Cholesterol 45 mg/dL (0-200); Globulin 1.8 g/dL (1.3-4.6); Glucose 147 mg/dL (65-115); HDL Cholesterol 19 mg/dL (60-100); LDL Cholesterol Calculated 17 mg/dL (50-129); Osmolality Calculated 317 mOsm/kg (285-295); Potassium 6.4 mmol/L (3.5-5.1); Sodium 135 mmol/L (136-145); Total Bilirubin 1.5 mg/dL (0.15-1.2); Total Protein 5.1 g/dL (6.6-8.7); Triglycerides 43 mg/dL (0-150); VLDL Cholestrol Calculation 9 mg/dL (0-30)
--- NOTE | 2022-09-01 05:40 | ECG_ITS ---
[facility] Test Date: 2022-09-01 Pat Name: Yasmani Encinas Department: Room: [facility] Gender: Female Environmental Health And Safety Intern: : 1945 Requested By: Nadia George Order Number: [id number] Joanna MD: Pedrito Walker M.D. Measurements Intervals [place] Rate: 153 P: 0 NM: 0 QRS: -59 QRSD: 156 T: 129 QT: 331 QTc: 530 Interpretive Statements ATRIAL FIBRILLATION WITH RAPID VENTRICULAR RESPONSE LEFT AXIS DEVIATION [QRS AXIS < -30] LEFT BUNDLE BRANCH BLOCK [120+ ms QRS DURATION, 80+ ms Q/S IN V1/V2, 85+ ms R IN I/aVL/V5/V6] CRITICAL TEST RESULT INTERPRETATION BASED ON A DEFAULT AGE OF 40 YEARS Compared to ECG 08/31/2022 01:53:24 Sinus rhythm no longer present Electronically Signed On 09-01-2022 11:21:21 CERTIFIED TECHNICIAN by Pedrito Walker M.D. [id number]
[2022-09-01 05:43] LABS: Glucose Point of Care 155 mg/dL (70-110)
[2022-09-01 05:45] LABS: Blood Urea Nitrogen 108 mg/dL (8-23)
--- NOTE | 2022-09-01 06:11 | PC.NURSE ---
Addendum entered by Lora Phillips RN 09/01/22 06:24: Attempted to call family w/ an update on pt condition @approximately 0615, call went to voicemail. Addendum entered by Lora Phillips RN 09/01/22 06:23: BIPAP oxygen was titrated back down to 30%. Levophed was titrated back down to 6. Original Note: @approximately 0534 rhythm change was noted on the monitor. HR 170's. Increased oxygen requirements, BIPAP turned to 100%,. Low blood pressure, Levophed was titrated up. EKG preformed. EKG read A.fib RVR. Dr. George called and came to bedside to see pt. Daughter called. Expressed that pt was in critical condition and that it would be advised that she come to the hospital. Dr. George gave new order for amio drip w/ bolus. See MAR for administration. During this time IV access was lost, new access was obtained in the R. hand. Pt cardioverted @0605.
--- NOTE | 2022-09-01 06:25 | PC.NURSE ---
Low Temps: Shilpa Hugger warming blanket remained in place all night. Pt continues to have low temperatures.
[2022-09-01 06:37] LABS: Magnesium 1.9 mg/dL (1.7-2.3)
[2022-09-01] MEDS: magnesium sulfate premix 2 GM/50 ML PIGGYBACK IV (06:46)
[2022-09-01] MEDS: pantoprazole 40 mg SDV IVP (06:57)
[2022-09-01] MEDS: budesonide 0.5 mg/2 mL Neb INHALATION (08:24)
[2022-09-01 09:13] LABS: Estmated Average Glucose 88; Hemoglobin A1C 4.7 % (4.0-6.0)
--- NOTE | 2022-09-01 11:08 | PC.NURSE ---
Clarified with Dr. Hidalgo order for levophed while on comfort care. Verbal order to pause levophed drip obtained. Patient and family at bedside updated on plan of care.
--- NOTE | 2022-09-01 12:49 | PC.NURSE ---
Patient able to nod head yes and no to questions, currently. Patient denies pain at this time. Patient is on 2L NC. Speech consulted to evaluate swallowing ability as patient seems to be more alert off of bipap.
--- NOTE | 2022-09-01 13:00 | P.PN_ITS ---
Subjective Subjective: This morning had a detailed discussion with the family who has opted to start comfort care in the hospital and hospice care at the retirement manager business process updated Patient is able to answer a few questions She opens eyes to try to follow commands Very fatigued and lethargic Request history therapy as well Persistent hyperkalemia family does not want hemodialysis She is DNR/DNI on comfort measures now Vitals/I&O/Wt Last Vital Signs Temp 96.1 F L 09/01/22 06:30 Pulse 74 09/01/22 12:00 Resp 25 H 09/01/22 12:00 BP 69/45 09/01/22 12:00 Pulse Ox 87 L 09/01/22 12:00 O2 Del Method 09/01/22 12:00 O2 Flow Rate 2 09/01/22 12:00 FiO2 30 09/01/22 08:29 08/31/22 09/01/22 09/01/22 22:59 06:59 14:59 Intake Total 400.2 / 500.2 1351.628 / 1851.828 247.104 / 247.104 Output Total Balance 375.2 / 475.2 1341.628 / 1816.828 247.104 / 247.104 Weight last 48 hrs Weight 63.503 kg Physical Exam Narrative: Fatigued and lethargic Currently on BiPAP Transition to 2 L nasal cannula Low blood pressure On amiodarone and vasopressors 2+ edema of legs Abdomen soft Diminished breath sounds Physically deconditioned Urinary Catheter Management: Schwab: Cath Placed During This Visit: yes Reason for Continuing Indwelling Catheter: Accurate Measurement of Urinary Output in Critically Ill Patients Urinary Catheter Date of Insertion: 08/31/22 Urinary Catheter Time of Insertion: 04:52 Data 09/01/22 04:48 09/01/22 04:48 Micro: Microbiology 08/31/22 04:50 Urine Culture - Preliminary Urine,Clean Catch 08/31/22 00:36 Blood Culture - Preliminary Blood NEGATIVE TO DATE 08/31/22 00:28 Blood Culture - Preliminary Blood NEGATIVE TO DATE 08/31/22 05:20 MRSA Culture - Final Nose 08/31/22 04:50 Bacterial Antigens - Final Urine Kidney A&P Assessment and plan (1) Uremia: (2) Hyperbilirubinemia: (3) Transaminitis: (4) High anion gap metabolic acidosis: (5) Acute respiratory failure with hypoxia and hypercapnia: (6) UTI (urinary tract infection): (7) Acute hyperkalemia: (8) Congestive heart failure: (9) Sepsis: (10) Stroke: Plan Had a detailed meeting with the family, patient is still very fatigued and lethargic although able to follow few commands She cannot make this year for self Daughters at the bedside She has opted for hospice care for now I have updated protective services case worker, daughter is okay please send her back to retirement with hospice care She is not a candidate for dialysis as per the family She is DNI/DNI Requiring pressors, she has developed ATN, persistent hypokalemia will need dialysis at this point but considering her age and physical deconditioning she might not be a good candidate for CRRT Attestations Medical Necessity Statement*: Detailed family meeting conducted today Diagnoses Uremia N19 Hyperbilirubinemia E80.6 Transaminitis R74.01 High anion gap metabolic acidosis E87.29 Acute respiratory failure with hypoxia and hypercapnia J96.01; J96.02 UTI (urinary tract infection) N39.0 Acute hyperkalemia E87.5 Congestive heart failure I50.9 Sepsis A41.9 Stroke I63.9
[2022-09-01] MEDS: morphine 4 mg/mL SDV 1 mL 1 MG IVP (13:48)
--- NOTE | 2022-09-01 13:49 | PM.DCS ---
Discharge Providers Date of Admission: 08/31/22 03:10 Date of Discharge: September 01, 2022 Attending Provider at Admission: Home Spicer MD Attending Provider at Discharge: Nirmala Hidalgo MD Primary Care Provider: Loretta Gil MD Diagnoses at Discharge Discharge Diagnosis (1) Uremia: Status: Acute (2) Hyperbilirubinemia: Status: Acute (3) Transaminitis: Status: Acute (4) High anion gap metabolic acidosis: Status: Acute (5) Acute respiratory failure with hypoxia and hypercapnia: Status: Acute (6) UTI (urinary tract infection): Status: Acute (7) Acute hyperkalemia: Status: Acute (8) Congestive heart failure: Status: Acute Permanent problem details: Echocardiogram from May 2022: EF 40 to 45%, global LV hypokinesia, grade 2 diastolic dysfunction, RVSP 35 to 40 mmHg, moderate MR (9) Sepsis: Status: Acute (10) Stroke: Status: Acute Reason for Visit Reason for Visit: AMS Hospital Course Hospital Course 76-year-old female who was admitted to the ICU for severe sepsis related to UTI,, CT scan consistent with subacute stroke, patient was put on Levophed, for A-fib RVR she required amiodarone, with septic shock she developed ATN, oliguric, she was persistently hyperkalemic, she was DNR/DNI, family decided against any hemodialysis or aggressive measures, she has not eaten since admission, she is very fatigued and lethargic physically deconditioned, requiring BiPAP with decreased work of breathing, 3/6 detailed family meeting conducted, [facility] technical publications manager updated. Physical Exam Narrative: Fatigued and leth argic Currently on BiPAP Transition to 2 L nasal cannu la Low blood press ure On amiodarone and vasopressors 2+ edema of legs A bdomen soft Dimini shed breath sounds Physically decond itioned Urinary Catheter Management: Schwab: Cath Placed During This Visit: yes Reason for Continuing Indwelling Catheter: Accurate Measurement of Urinary Output in Critically Ill Patients Urinary Catheter Date of Insertion: 08/31/22 Urinary Catheter Time of Insertion: 04:52 Discharge Data Studies Completed and Pending Completed Studies During Hospitalization Category Date Time Status CT head wo con* [id number] Stat Cat Scan 08/30/22 23:52 Completed XR chest 1V portable [id number] Stat Exams 08/30/22 23:52 Completed XR chest 1V portable [id number] Stat Exams 08/31/22 12:16 Completed CV carotid duplex BI* [id number] Routine Ultrasound 08/31/22 05:19 [place] [id number] Routine Ultrasound 08/31/22 Completed CV. echo complete* [id number] Stat Ultrasound 08/31/22 10:23 Completed Pending at discharge Category Date Time Status Blood Culture Stat Lab 08/30/22 23:52 Results Miscellaneous Test Routine Lab 08/31/22 09:07 Received Urine Culture Routine Lab 08/31/22 04:50 Results Radiology Impressions Head CT 08/30/22 23:52 IMPRESSION: 1. Suspicion for a subacute infarct involving the medial right occipital lobe, please see above discussion. 2. No acute intracranial hemorrhage or midline shift. 3. No definite acute infarct by CT, see above. 4. Other findings discussed above. ADDENDUM: 08/31/22 0217 This report contains findings that may be critical to patient care. I discussed the critical exam findings by phone with JESSICA Davila at 2:14 AM REFRIGERATOR CABINETMAKER, 08/31/2022. The findings were acknowledged and understood. Venous Duplex 08/31/22 00:00 IMPRESSION: No evidence of deep vein thrombosis. Carotid Doppler Study 08/31/22 05:19 IMPRESSION: No carotid arterial stenosis. REFERENCES: SRU CRITERIA. The degree of internal carotid artery stenosis is based on criteria defined by the Society of Radiologists in Ultrasound (SRU). Normal is no stenosis. Mild is less than 50% stenosis. Moderate is 50-69% stenosis. Severe is greater than 69% stenosis to near occlusion. Near occlusion is a markedly narrowed lumen. Total occlusion is no detectable patent lumen. Chest X-Ray 08/31/22 12:16 IMPRESSION: Imaging findings of pulmonary edema with small bilateral pleural effusions. Pneumonia should be excluded clinically. Laboratory Results WBC 24.5 10^3/uL (4.0-10.0) H 09/01/22 04:48 RBC 3.61 10^6/uL (4.1-5.3) L 09/01/22 04:48 Hgb 7.6 g/dL (11.5-15.3) L 09/01/22 04:48 Hct 26.2 % (37.0-47.0) L 09/01/22 04:48 MCV 72.6 fl (81-99) L 09/01/22 04:48 MCH 21.1 pg (28.0-34.0) L 09/01/22 04:48 MCHC 29.0 g/dL (30.0-36.0) L 09/01/22 04:48 RDW 18.0 % (12.1-15.1) H 09/01/22 04:48 Plt Count 188 10^3/cmm (130-400) 09/01/22 04:48 MPV 10.8 fL (7.4-10.4) H 09/01/22 04:48 Neut % (Auto) 93.6 % 09/01/22 04:48 Lymph % (Auto) 1.5 % 09/01/22 04:48 [place] % (Auto) 4.1 % 09/01/22 04:48 Eos % (Auto) 0.0 % 09/01/22 04:48 Baso % (Auto) 0.1 % 09/01/22 04:48 Neut # (Auto) 22.96 10^3/uL (1.8-7.7) H 09/01/22 04:48 Lymph # (Auto) 0.4 10^3/uL (0.8-4.8) L 09/01/22 04:48 [place] # (Auto) 1.0 10^3/uL (0.2-0.9) H 09/01/22 04:48 Eos # (Auto) 0.0 10^3/uL (0.0-0.8) 09/01/22 04:48 Baso # (Auto) 0.0 10^3/uL (0.0-0.1) 09/01/22 04:48 Nucleated RBC % (auto) 0.9 % 09/01/22 04:48 Nucleated RBCs # 0.2 /100WBC 09/01/22 04:48 PT 34.30 SECONDS (12.1-14.9) H 08/31/22 09:07 INR 3.23 (0.8-1.2) H 08/31/22 09:07 APTT 43.8 SECONDS (23.9-36.7) H 08/31/22 09:07 Fibrinogen mg/dL (174-498) 08/31/22 09:07 Fibrin Degrad Products Pos, >=40 ug/mL (NEG) H 08/31/22 09:07 D-Dimer > 20.00 ug/mIFEU (0-0.59) H 08/31/22 09:07 Specimen Type Venous 08/31/22 16:25 Sample Site Not specified 08/31/22 16:25 ABG pH 7.31 (7.35-7.45) L 08/31/22 00:06 ABG pCO2 47.3 mmHg (35-45) H 08/31/22 00:06 ABG pO2 85.2 mmHg (80.0-100.0) 08/31/22 00:06 ABG HCO3 23.9 mmol/L (22-26) 08/31/22 00:06 ABG Base Excess -2.3 mmol/L (-2.0-2.0) L 08/31/22 00:06 Neo Test Pos 08/31/22 16:25 VBG pH 7.32 (7.32-7.42) 08/31/22 16:25 VBG pCO2 45.5 mmHg (41-51) 08/31/22 16:25 VBG pO2 38.4 mmHg (25-40) 08/31/22 16:25 VBG HCO3 23.4 mmol/L (24-28) L 08/31/22 16:25 VBG Base Excess -2.6 mmol/L (-3.0-3.0) 08/31/22 16:25 VBG Hematocrit 23.2 % (37-47) L 08/31/22 16:25 Hematocrit 24.6 % (37-47) L 08/31/22 00:06 Hgb O2 Saturation 94.2 % (95-100) L 08/31/22 00:06 Carboxyhemoglobin 1.6 %THgb (0.4-20.1) 08/31/22 00:06 Methemoglobin 0.6 % (0.4-1.5) 08/31/22 00:06 Total Hemoglobin 8.0 g/dL (12-16) L 08/31/22 00:06 O2 Delivery Device Bipap 08/31/22 16:25 O2 Liters/Min 4.0 % 08/31/22 00:06 FiO2 50.0 % 08/31/22 16:25 Lease Analyst ID [place] 08/31/22 16:25 Sodium 135 mmol/L (136-145) L 09/01/22 04:48 Potassium 6.4 mmol/L (3.5-5.1) H 09/01/22 04:48 Chloride 97 mmol/L (98-107) L 09/01/22 04:48 Carbon Dioxide 19 mmol/L (22-29) L 09/01/22 04:48 Anion Gap 25.4 (5-19) H 09/01/22 04:48 BUN 108 mg/dL (8-23) H* 09/01/22 04:48 Creatinine 3.7 mg/dL (0.5-0.9) H 09/01/22 04:48 GFR Calculation Not Reportable 09/01/22 04:48 Glucose 147 mg/dL (65-115) H 09/01/22 04:48 POC Glucose 155 mg/dL (70-110) H 09/01/22 05:40 Estimat Average Glucose 88 08/31/22 00:28 Hemoglobin A1c 4.7 % (4.0-6.0) 08/31/22 00:28 Calculated Osmolality 317 mOsm/kg (285-295) H 09/01/22 04:48 Lactic Acid 2.9 mmol/L (0.5-2.2) H 08/31/22 00:28 Lactic Acid (Sepsis) 2.9 mmol/L (0.5-2.2) H 08/31/22 06:19 Calcium 6.6 mg/dL (8.5-10.5) L 09/01/22 04:48 Magnesium 1.9 mg/dL (1.7-2.3) 09/01/22 04:48 Iron 15 ug/dL (37-145) L 08/31/22 02:18 TIBC 268 mcg/dl 08/31/22 02:18 % Saturation 5.5 % (20-50) L 08/31/22 02:18 Unsat Iron Binding 253 ug/dL (112-347) 08/31/22 02:18 Total Bilirubin 1.5 mg/dL (0.15-1.2) H 09/01/22 04:48 AST 608 U/L (0-32) H 09/01/22 04:48 ALT 283 U/L (0-33) H 09/01/22 04:48 Alkaline Phosphatase 96 U/L (35-105) 09/01/22 04:48 Creatine Kinase 663 U/L (26-192) H* 08/31/22 05:50 Troponin T Baseline 136 ng/L (0-10) H* 08/31/22 00:28 Troponin T 120 Minute 140.6 ng/L (0-10) H 08/31/22 02:18 Delta Troponin T 4.6 ABS# (0-10) 08/31/22 02:18 Troponin T Hi Sens 6Hr 135.6 ng/L (0-10) H 08/31/22 06:19 Troponin T Hi Sens 6Hr Delta -0.4 ng/L (0-12) L 08/31/22 06:19 NT-Pro-B Natriuret Pep > 46365 pg/mL (0-450) H 08/31/22 00:28 Total Protein 5.1 g/dL (6.6-8.7) L 09/01/22 04:48 Albumin 3.3 g/dL (3.5-5.2) L 09/01/22 04:48 Globulin 1.8 g/dL (1.3-4.6) 09/01/22 04:48 Triglycerides 43 mg/dL (0-150) 09/01/22 04:48 Cholesterol 45 mg/dL (0-200) 09/01/22 04:48 LDL Cholesterol, Calc 17 mg/dL (50-129) L 09/01/22 04:48 Total VLDL Cholesterol 9 mg/dL (0-30) 09/01/22 04:48 HDL Cholesterol 19 mg/dL (60-100) L 09/01/22 04:48 Cholesterol/HDL Ratio 2.37 mg/dL (0.0-4.40) 09/01/22 04:48 Vitamin B12 > 2000 pg/mL (232-1245) H 08/31/22 05:50 Folate 11.7 ng/mL (4.8-37.3) 08/31/22 05:50 Procalcitonin 0.43 ng/mL (0-0.5) 08/31/22 05:50 TSH 4.22 uIU/mL (0.27-4.20) H 08/31/22 05:50 Free T4 0.23 ng/dL (0.82-1.77) L 08/31/22 05:50 Free T3 0.8 PG/ML (2.0-4.4) L 08/31/22 05:50 Random Cortisol 127.60 ug/dL (2.47-19.5) H 08/31/22 05:50 Urine Color Dark yellow (Yellow) 08/31/22 04:50 Urine Appearance Hazy (CLEAR) A 08/31/22 04:50 Urine pH 5 (5-7) 08/31/22 04:50 Ur Specific [place] 1.025 (1.005-1.030) 08/31/22 04:50 Urine Protein 3+ (Negative) H 08/31/22 04:50 Urine Glucose (UA) 1+ (Normal) H 08/31/22 04:50 Urine Ketones 1+ (Negative) H 08/31/22 04:50 Urine Blood 3+ (Negative) H 08/31/22 04:50 Urine Nitrate Positive (Negative) H 08/31/22 04:50 Urine Bilirubin 1+ (Negative) H 08/31/22 04:50 Urine Urobilinogen 1 mg/dL (Negative) H 08/31/22 04:50 Ur Leukocyte Esterase Trace (Negative) H 08/31/22 04:50 Urine RBC 25-40 /hpf (0-2) H 08/31/22 04:50 Urine WBC 15-25 /hpf (0-5) H 08/31/22 04:50 Ur Squamous Epith Cells 10-15 /hpf (0-5) H 08/31/22 04:50 Amorphous Sediment 2+ /hpf 08/31/22 04:50 Urine Bacteria 3+ /hpf (NONE) H 08/31/22 04:50 Hyaline Casts 0-4 /lpf H 08/31/22 04:50 Urine Mucus 2+ /hpf 08/31/22 04:50 Ur Random Sodium 52 mmol/L 08/31/22 04:50 Ur Random Potassium 55 mmol/L 08/31/22 04:50 Ur Random Chloride 41 mmol/L 08/31/22 04:50 Nasal Influ A H1 2008 PCR Not detected (NOT DETECT) 08/31/22 05:20 Adenovirus (PCR) Not detected (NOT DETECT) 08/31/22 05:20 C. pneumoniae DNA (PCR) Not detected (NOT DETECT) 08/31/22 05:20 Coronavirus 229E (PCR) Not detected (NOT DETECT) 08/31/22 05:20 Human Metapneumovir PCR Not detected (NOT DETECT) 08/31/22 05:20 Influenza A (H1) PCR Not detected (NOT DETECT) 08/31/22 05:20 Influenza A (H3) PCR Not detected (NOT DETECT) 08/31/22 05:20 Influenza Type A (PCR) Not detected (NOT DETECT) 08/31/22 05:20 Influenza Type B (PCR) Not detected (NOT DETECT) 08/31/22 05:20 M. pneumoniae (PCR) Not detected (NOT DETECT) 08/31/22 05:20 Parainfluenza 1 (PCR) Not detected (NOT DETECT) 08/31/22 05:20 Parainfluenza 2 (PCR) Not detected (NOT DETECT) 08/31/22 05:20 Parainfluenza 3 (PCR) Not detected (NOT DETECT) 08/31/22 05:20 Parainfluenza 4 (PCR) Not detected (NOT DETECT) 08/31/22 05:20 RSV Type A (PCR) Not detected (NOT DETECT) 08/31/22 05:20 RSV Type B (PCR) Not detected (NOT DETECT) 08/31/22 05:20 Entero/Rhino (PCR) Not detected (NOT DETECT) 08/31/22 05:20 SARS-CoV-2 (PCR) Detected (NOT DETECT) A 08/31/22 05:20 Vitals Last Vital Signs Temp 96.1 F L 09/01/22 06:30 Pulse 74 09/01/22 12:00 Resp 25 H 09/01/22 12:00 BP 69/45 09/01/22 12:00 Pulse Ox 87 L 09/01/22 12:00 O2 Del Method 09/01/22 12:00 O2 Flow Rate 2 09/01/22 12:00 FiO2 30 09/01/22 08:29 Discharge Plan Discharge Patient Disposition: Hospice - Medical Facility Condition: Serious Prescriptions: Discontinued atorvastatin 20 mg tablet 20 mg PO DAILY donepezil 10 mg tablet 10 mg PO DAILY furosemide 40 mg tablet 40 mg PO BID spironolactone 25 mg tablet 25 mg PO DAILY albuterol sulfate 2.5 mg /3 mL (0.083 %) solution for nebulization 2.5 mg inhalation Q6H PRN (Reason: Wheezing) aspirin 81 mg Tablet,Delayed Release (Dr/Ec) 81 mg PO DAILY triamcinolone acetonide 0.1 % Cream 1 applic TOPICAL BID Discharge Orders: Discharge Order (Routine); Ordered 09/01/22 Ordered By: Nirmala Hidalgo Referrals: Loretta Gil MD [Primary Care Provider] - Discharge Attestations Time Spent in Discharge Care*: less than 30 min Quality Metrics Clinical Quality Measures [ No reported AMI, CVA or VTE this stay] Coding Level of Care Code Acute Code for Chg Fwd Diagnoses Uremia N19 Hyperbilirubinemia E80.6 Transaminitis R74.01 High anion gap metabolic acidosis E87.29 Acute respiratory failure with hypoxia and hypercapnia J96.01; J96.02 UTI (urinary tract infection) N39.0 Acute hyperkalemia E87.5 Congestive heart failure I50.9 Sepsis A41.9 Stroke I63.9
--- NOTE | 2022-09-01 16:21 | PC.NURSE ---
[facility] [place]. Patient to receive hospice care there. Family involved throughout process. All questions answered at bedside. All belongings with patient or family. Patient in care of transport at 1616 on 2L NC for comfort care. Schwab catheter remained in place for comfort needs.
== END 2022-09-01 16:25 | disposition hospice, home (50) | DRG 871 ==
LOC: ER 08-31 02:45 → ICU 08-31 03:10
PROVIDERS: Internal Medicine; Student in an Organized Health Care Education/Training Program; Admitting Provider Student in an Organized Health Care Education/Training Program; Emergency Provider Emergency Medicine; PCP Family Medicine; Visit Provider Internal Medicine
DX: A41.9 Sepsis, unspecified organism (principal); I21.A1 Myocardial infarction type 2; L89.623 Pressure ulcer of left heel, stage 3; I63.9 Cerebral infarction, unspecified; J12.82 Pneumonia due to coronavirus disease 2019; R65.21 Severe sepsis with septic shock; U07.1 COVID-19; N17.0 Acute kidney failure with tubular necrosis; I50.23 Acute on chronic systolic (congestive) heart failure; J96.02 Acute respiratory failure with hypercapnia; J96.01 Acute respiratory failure with hypoxia; R57.0 Cardiogenic shock; N39.0 Urinary tract infection, site not specified; E87.20 Acidosis, unspecified; R29.810 Facial weakness; I48.91 Unspecified atrial fibrillation; E87.5 Hyperkalemia; Z66 Do not resuscitate; R68.0 Hypothermia, not associated with low environmental temperature; L89.152 Pressure ulcer of sacral region, stage 2; Z51.5 Encounter for palliative care; K76.89 Other specified diseases of liver; I34.0 Nonrheumatic mitral (valve) insufficiency; E86.0 Dehydration
CPT/HCPCS: 36415; 36416; 36600; 51702; 70450; 71045; 80053; 80061; 81001; 82436; 82533; 82550; 82607; 82746; 82803; 82805; 82962; 83036; 83540; 83550; 83605; 83735; 83880; 84133; 84145; 84300; 84439; 84443; 84481; 84484; 85025; 85362; 85378; 85384; 85610; 85730; 86403; 87040; 87086; 87449; 87486; 87581; 87633; 87641; 92523; 92610; 93005; 93306; 93880; 93970; 94640; 94660; 94664; 96365; 96367; 96372; 96375; 99285; C9113; J0282; J0610; J1650; J1720; J1815; J1940; J2270; J2543; J3370; J3475; J7030; J7050; J7060; J7626; P9046